=== PATIENT | male | born 1940 | race Caucasian/White ===

== ENCOUNTER 2023-03-20 06:15 | Day surgery (SDC) | payer MEDICARE, OTHER ==
[2023-03-20] VITALS (12 sets, daily range): BP systolic 102–149; BP diastolic 55–77
[~2023-03-20] VITALS: Ht 170.2 cm; Wt 75.8 kg
[~2023-03-20 06:15] MED LIST: Acetaminophen 500 MG Tab PO SCH; CARV6.25 PO; Chlorhexidine Mouth Care 15 ML UDC MT SCH; Lactated Ringer's 1,000 ML IV SCH; OxyCODONE HCL 10 MG TABCR PO SCH; Ropivacaine 0.5% HCl/Pf 67.75 MG,EPINEPHrine HCL 0.25 MG,Ketorolac Tromethamine 15 MG,C... INFIL SCH; SILD50TA PO
[2023-03-20] MEDS ORDERED: CeFAZolin Sodium 2,000 MG in NS 50 ML IV SCH ×2 (07:15→16:00)
[2023-03-20] MEDS ORDERED: FentaNYL Citrate 50 MCG/ML 2 ML Injection ONE (07:28)
[2023-03-20] MEDS ORDERED: propofoL 20 ML IV ONE (07:28)
[2023-03-20] MEDS ORDERED: ePHEDrine Sulfate 50 MG/ML 1ML Injection ONE (08:09)
[2023-03-20] MEDS ORDERED: Ondansetron HCl 2 MG / ML 2ML Vial ONE (09:14)
[2023-03-20] MEDS ORDERED: Ondansetron HCl 2 MG / ML 2ML Vial IV PRN (09:25)
[2023-03-20] MEDS ORDERED: Magnesium Hydroxide Conc 10 ML UDC PO PRN (09:25)
[2023-03-20] MEDS ORDERED: Metoclopramide HCl 5MG / ML 2ML Vial IV PRN (09:25)
[2023-03-20] MEDS ORDERED: HYDROmorphone HCl/Pf 1MG SYR IV PRN (09:25)
[2023-03-20] MEDS ORDERED: Bisacodyl 10 MG Supp PR PRN (09:30)
[2023-03-20] MEDS ORDERED: Lactated Ringer's 1,000 ML IV SCH (09:30)
[2023-03-20] MEDS ORDERED: FLU VACC QS2023-24(6MOS UP)/PF 60 MCG/0.5 ML SYRINGE IM SCH (09:30)
[2023-03-20] MEDS ORDERED: DiphenhydrAMINE HCL 25 MG Cap PO PRN (09:30)
[2023-03-20] MEDS ORDERED: OxyCODONE HCL 5 MG TAB PO PRN ×2 (09:35)
[2023-03-20] MEDS ORDERED: Promethazine HCl 25 MG Tab PO PRN (09:35)
[2023-03-20] MEDS ORDERED: Prochlorperazine Edisylate 10 mg Vial IV PRN (09:35)
--- NOTE | 2023-03-20 09:55 | NUR ---
ARRIVAL TO SURGICAL UNIT PLEASANT, ALERT, ANVIK. DENIES PAIN. SPINAL WORKING WELL. CAN WIGGLE TOES & LIFT BOTH LEGS 2 INCHES BUT NOT MAINTAIN LIFTED. LUNGS CLEAR. HRR, ISABEL. R HIP w/ AQUACEL w/ NO DRNG. ANTERIOR. PPP. BRISK CAP REFILL. DENIES N/V. FLUIDS GIVEN. DECLINES FURTHER TO EAT OR DRINK AT THIS TIME. FAMILY AT BEDSIDE. GIVEN RX TO GO GET FILLED PT HOPES TO DC HOME TODAY.
[2023-03-20] MEDS ORDERED: Ketorolac Tromethamine 15mg Vial IV SCH (12:00)
[2023-03-20] MEDS ORDERED: ASPI81CH PO (14:05)
[2023-03-20] MEDS ORDERED: Percocet 5-3251 EACH PO (14:05)
--- NOTE | 2023-03-20 15:20 | NUR ---
DISCHARGE PT HAS CLEARED THERAPY. PAIN WELL CONTROLLED. EATING, DRINKING, & VOIDING WELL. HAS WAVES OF NAUSEA, BUT FEELS COMFORTABLE GOING HOME. KVNG & POLAR PACK SENT w/ PT. ESCORTED OUT VIA W/C.
[2023-03-20] MEDS ORDERED: Acetaminophen 500 MG Tab PO SCH (16:00)
[2023-03-20] MEDS ORDERED: Docusate Sodium 100 MG Cap PO SCH (21:00)
[2023-03-21] MEDS ORDERED: Aspirin 81 MG Chew PO SCH (09:00)
[2023-03-21] MEDS ORDERED: Carvedilol 6.25 MG Tab PO SCH (09:00)
== END 2023-03-20 15:23 | disposition home or self-care (01) ==
LOC: ORSCMMR 06:15 → ORD 07:30 → SURS 09:43 → ORSCMMR 15:23
PROVIDERS: Orthopaedic Surgery
PROC: 0SR90JZ Replacement of Right Hip Joint with Synthetic Substitute, Open Approach (ICD-10-PCS; principal; 2023-03-20 07:30)
DX: M16.11 Unilateral primary osteoarthritis, right hip (principal); I10 Essential (primary) hypertension; Z79.899 Other long term (current) drug therapy; Z85.820 Personal history of malignant melanoma of skin
CPT/HCPCS: 72170; 97110; 97116; 97162; 97530; A9270; C1776; J0171; J0690; J0735; J1885; J2405; J2704; J2795; J3010; J7120